=== PATIENT | female | born 1970 | race Caucasian/White ===

== ENCOUNTER 2017-05-25 23:00 | Inpatient (IN) | payer OTHER ==
--- NOTE | ~2017-05-25 | PN ---
Unit #: [id number] #: [id number] Patient: ROSALIO ELDER [id number] [facility] [address] [place] [address] [id number] MR#: [id number] NAME: ROSALIO ELDER. ROOM: P258 Age: 46 Sex: F Admission Date: 05/26/2017 : 1970 Attending Physician: Logan Loera M.D. Admitting Physician: Logan Loera M.D. Primary Care Physician: Vinh De La Rosa Jr., D.OLalito RODRIGUEZ PROGRESS NOTES DATE OF SERVICE: 05/28/2017 SUBJECTIVE Ms. Elder is a 46-year-old white female who was seen today and chart was reviewed and case was discussed with the staff. She has been very agitated, irritable, and poorly focused and motivated towards treatment, and wanting 72 hours hold to and that she is going to sign out right after that and that she does not need to be here and there is nothing wrong with her and we were not being nice to her, but not dropping her 72 hours hold and letting her go and as such, appears to be impulsive and irritable and overall being at poor prognosis. However, she has been voicing at loud that she is not suicidal anymore and that she is not having any thoughts to hurt herself and as such, I have a feeling that once her 72 hours hold expires tomorrow, she will effectively sign herself out against medical advice and will be encouraged to comply with treatment recommendations. Dictated by... Paco Crawford/bonifacio TD: 05/29/2017 06:13 JOB #: [id number] PEAKAYLENE PROGRESS NOTES Page 1 of 1 X Logan Loera MD PROGRESS NOTE
--- NOTE | ~2017-05-25 | DS ---
Unit #: [id number] #: [id number] Patient: ROSALIO SHAH [id number] [facility] [address] [place] [address] [id number] MR#: [id number] NAME: ROSALIO SHAH. ROOM: P258 Age: 46 Sex: F Admission Date: 05/26/2017 : 1970 Discharge Date: 05/29/2017 Attending Physician: Logan Loera M.D. Primary Care Physician: Vinh De La Rosa Jr., D.O. DISCHARGE SUMMARY IDENTIFYING DATA Ms. Shah is a 46-year-old white female who was a resident of [place], [place] and was transferred to us from [facility] emergency room. HISTORY OF PRESENT ILLNESS Please see initial psychiatric evaluation. PAST PSYCHIATRIC HISTORY Please see initial psychiatric evaluation. PAST MEDICAL HISTORY Please see initial psychiatric evaluation. HOSPITAL COURSE The patient [facility] and was oriented to the hospital environment. Routine p.r.n. medications were initiated and she was started back on her home medications and medications were adjusted she was closely monitored. She was taking the medications regularly and was tolerating them fairly well and was able to show a decent and therapeutic response with improvement in depression, anxiety and was denying any suicidal ideations, intent or plan and as such it was decided that she will be discharged and will continue treatment. DISCHARGE DIAGNOSES PSYCHIATRIC: Major depressive disorder, recurrent, moderate, without psychotic features. MEDICAL: 1. Asthma. 2. Chronic obstructive pulmonary disease. 3. Coronary artery disease. 4. Arthritis. 5. Degenerative disc disease. STRESSORS: Mild psychosocial stressors. DISCHARGE MEDICATIONS Celexa 20 mg daily for depression. CONDITION AT DISCHARGE Unit #: [id number] #: [id number] Patient: ROSALIO SHAH Stable. PROGNOSIS Fair. Dictated by... Logan Loera M.D. IAA/alejandroh TD: 05/29/2017 16:44 JOB #: [id number] DISCHARGE SUMMARY Page 1 of 1 X Logan Loera MD X DISCHARGE SUMMARY
--- NOTE | ~2017-05-25 | HP ---
Unit #: [id number] #: [id number] Patient: SHAYNA ELDER [id number] [facility] [address] [place] [address] [id number] MR#: [id number] NAME: SHAYNA ELDER. ROOM: P113 Age: 46 Sex: F Admission Date: 05/26/2017 : 1970 Attending Physician: Logan Loera M.D. Admitting Physician: Logan Loera M.D. Primary Care Physician: Vinh De La Rosa Jr., D.O. HISTORY AND PHYSICAL HISTORY OF PRESENT ILLNESS Shayna is a 46 year old admitted to [address] [place] [address] with out of control anger and homicidal and suicidal threats. PAST MEDICAL HISTORY COPD PAST SURGICAL HISTORY 1. Facial 2. T & A 3. Uterine ablation 4. Hysterectomy 5. Bilateral carpal tunnel release ALLERGIES Oxycodone (itching). SOCIAL HISTORY Smokes greater than one pack per day. Denies alcohol. Admits to using marijuana on a regular basis. FAMILY HISTORY Medically noncontributory. REVIEW OF SYSTEMS CONSTITUTIONAL: No fever or chills. HEENT: Denies any sore throat, ear pain or runny nose. CARDIOVASCULAR: Denies chest pain, irregular heart rhythm or palpitations. CHEST: Denies shortness of breath or cough. No hemoptysis. GASTROINTESTINAL: Denies nausea, vomiting, diarrhea or chronic constipation. ENDOCRINE: Denies history of increased thirst or urination. No recent significant weight loss or gain. GENITOURINARY: Denies dysuria, frequency, or hematuria. SKIN: Denies any rashes. HEMATOLOGIC: Denies history of increased bleeding or bruising. MUSCULOSKELETAL: Denies any hot, swollen joints. No generalized muscle pain. NEUROLOGIC: Denies problems with vision or speech. No frequent, severe headaches. No numbness, tingling or weakness in any extremities. Denies loss of bladder or bowel control. Unit #: [id number] #: [id number] Patient: SHAYNA ELDER CURRENT MEDICATIONS 1. Milk of Magnesia p.r.n. 2. Maalox p.r.n. 3. Tylenol p.r.n. 4. Nicotine patch 21 mg q day PHYSICAL EXAMINATION GENERAL: Alert, well-nourished, in no apparent distress. VITAL SIGNS: Blood pressure 130/66, heart rate 90, respirations 16, temperature 98.6. WEIGHT: 167 pounds. HEIGHT: 5'8". SKIN: Warm and dry without rash or lesion. HEENT: Normocephalic. TMs not viewed. Oral and nasal passages clear. Conjunctivae clear. Pupils equal, round and reactive to light and accommodation. Extraocular movements intact. NECK: Supple without lymphadenopathy or thyromegaly. HEART: Regular rate and rhythm without murmur. LUNGS: Clear. ABDOMEN: Soft, nontender. : Not done. EXTREMITIES: No evidence of cyanosis, clubbing or edema. Moves all extremities without focal deficit. NEUROLOGICAL: Grossly within normal limits. Cranial Nerves: II: Visual mendes are intact. III, IV AND : Extraocular movements are intact. Pupils are equal, round and reactive to light. V: Facial sensation is grossly normal. VII: Facial movements and expression are normal. VIII: Auditory acuity grossly intact. IX, X: Uvula is midline. Phonation is normal. XI: Patient shrugs shoulders and turns head normally. XII: Tongue protrudes in the midline. Sensory and Motor Function: Sensory and motor sensation is grossly normal. Motor: moves all extremities well. Coordination: Gait is normal. Deep Tendon Reflexes: Intact. IMPRESSION Psychiatric admission RECOMMENDATIONS PSYCHIATRIC: Per psychiatrist. MEDICAL: I see no contraindications to participating in facility's activities. MEDICAL PROGNOSIS Good. MEDICAL CONDITION Stable. Dictated by... Lina Johnson P.A.-C. for Qi Burt M.D. Unit #: [id number] #: [id number] Patient: SHAYNA ELDER Sohail CANO/annie TD: 05/26/2017 21:32 JOB #: [id number] HISTORY AND PHYSICAL Page 1 of 1 X Lina Johnson HISTORY AND PHYSICAL
--- NOTE | ~2017-05-25 | PA ---
Unit #: [id number] #: [id number] Patient: ROSALIO ELDER [id number] [facility] [address] [place] [address] [id number] I MR#: [id number] NAME: ROSALIO ELDER. ROOM: P258 Age: 46 Sex: F Admission Date: 05/26/2017 : 1970 Date of Assessment: 05/26/2017 Attending Physician: Logan Loera M.D. Admitting Physician: Logan Loera M.D. Primary Care Physician: Vinh De La Rosa Jr. D.O. PSYCHIATRIC ASSESSMENT DATE OF SERVICE 05/26/2017. IDENTIFYING DATA Ms. Elder is a 46-year-old white female, who is a resident of [place], [place], and was transferred to us from [facility] Emergency Room. CHIEF COMPLAINT "I had panic attack." HISTORY OF PRESENT ILLNESS Ms. Elder is a 46-year-old white female, who was brought to the emergency room due to having panic attacks and thoughts of having a seizure and stated that she has received her SSI check and she gave her mother to hold 4000 dollar for her and last night, the patient found out that her mother is not going to give her money back and stated that she did say while she was mad at her mother that she wanted to harm her mother and reported that she wishes she would and, while in the range of anger, the patient punched a wall and left her hand swollen and the patient was taken to emergency room and ER nurse reported the patient came to the ER making homicidal statements wanting to kill her mother due to her mother taking her 4000 dollar. On the emergency room, the patient was throwing things and police had to be called to help the patient calm down and security was called twice. The patient was placed on one-to-one and the patient made statement that she wanted to kill herself as well. 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 PAST PSYCHIATRIC HISTORY The patient has had history of inpatient psychiatric hospitalization at [facility] at [facility], at [facility] and has had outpatient treatment as well and has been diagnosed and treated for mood disorder. Review of the medical records indicate currently she is not active in any treatment program, is not seeing a psychiatrist, and is not taking any psychotropic medications. Unit #: [id number] #: [id number] Patient: ROSALIO ELDER PAST MEDICAL HISTORY Asthma, COPD, coronary artery disease, arthritis, degenerative disk disease. ALLERGIES Oxycodone. PERSONAL AND SOCIAL HISTORY A 46-year-old white female, who reports that she is single, unemployed, and lives at home with her father and her 18 years old son and has fairly decent social support system. MENTAL STATUS EXAMINATION Middle-aged white female who was casually dressed with fair personal hygiene, appears to be in no acute distress or discomfort. She was awake and alert on interaction with intact orientation to time, place, and person. Her mood was anxious and depressed with a congruent affect. Her speech was slow and restricted in content. Her thought processes were disorganized with some looseness of associations and suicidal ideations. Her insight and judgment remain significantly impaired. DIAGNOSTIC IMPRESSION Psychiatric: Major depressive disorder, recurrent, moderate, without psychotic features. Medical: Asthma, chronic obstructive pulmonary disease, coronary artery disease, arthritis, degenerative disk disease. Stressors: Moderate psychosocial stressors. TREATMENT PLAN 1. The patient has presented with history of mood disorder, and has been decompensating and will need inpatient hospitalization for safety and stabilization. We will start her back on her home medications. We will adjust the medications and monitor response. 2. Supportive therapy was provided to the patient. 3. Safe, structured, and nourishing environment will be provided. ESTIMATED LENGTH OF STAY 5 to 7 days. ABILITY TO HELP SELF Limited. WILLINGNESS TO HELP SELF The patient appears to be willing to help self. STRENGTHS 1. Communicative. 2. Cooperative. PROBLEMS 1. Chronic dysphoric symptoms. 2. Poor social support system. DISCHARGE CRITERIA This will be contingent upon the patient's ability to show resolution of her depression and her ability to stay safe to herself, particularly after discharge from the hospital. Unit #: [id number] #: [id number] Patient: ROSALIO ELDER Dictated by... Paco Crawford/bonifacio TD: 05/27/2017 07:57 JOB #: [id number] PSYCHIATRIC ASSESSMENT Page 1 of 1 X Logan Loera MD PSYCHIATRIC ASSESSMENT
--- NOTE | ~2017-05-25 | PN ---
Unit #: [id number] #: [id number] Patient: ROSALIO ELDER [id number] [facility] [address] [place] [address] [id number] MR#: [id number] NAME: ROSALIO ELDER. ROOM: P258 Age: 46 Sex: F Admission Date: 05/26/2017 : 1970 Attending Physician: Logan Loera M.D. Admitting Physician: Logan Loera M.D. Primary Care Physician: Vinh De La Rosa Jr., D.OLalito RODRIGUEZ PROGRESS NOTES DATE 05/27/2017 DISCUSSION Ms. Elder is a 46-year-old white female who was seen today and chart was reviewed and case was discussed with the staff. She has been anxious, withdrawn, depressed and rather seclusive to herself. Meanwhile, she has been cooperative with treatment recommendations as she has been taking the medications and tolerating them fairly well with no reported side effects. MENTAL STATUS EXAMINATION Middle-aged white female who was casually dressed with fair personal hygiene, appears to be in no acute distress or discomfort. She was awake and alert on interaction with intact orientation. Her mood was anxious with congruent affect. She denies any suicidal or homicidal ideations. Also, denies any auditory or visual hallucinations. Her insight and judgement remains slightly impaired. TREATMENT PLAN 1. We will continue her on her current medications and treatment protocol. We will monitor her response to the medication and make further adjustments as needed. 2. We will continue to follow up. Dictated by... Paco Crawford/annie TD: 05/28/2017 02:30 JOB #: [id number] Unit #: [id number] #: [id number] Patient: ROSALIO ELDER PROGRESS NOTES Page 1 of 1 X Logan Loera MD PROGRESS NOTE
[~2017-05-25 23:00] MED LIST: ALBUTEROL17 GM INH; ATROVENT HFA12.9 GM INH; BIPOLAR MED; CLARITIN10 MG PO; FLAGYL PO; VICODIN 5/500 T1 TAB PO; ZITHROMAX PO
[2017-05-29 09:58] LABS: URINE APPEARANCE CLOUDY; URINE BILIRUBIN NEG (NEG); URINE BLOOD NEG (NEG); URINE COLOR YELLOW; URINE GLUCOSE NEG (NEG); URINE KETONE NEG (NEG); URINE LEUKOCYTE ESTERASE NEG (NEG); URINE NITRATE NEG (NEG); URINE PROTEIN NEG (NEG); URINE SPECIFIC GRAVITY 1.018 (1.003-1.035); URINE UROBILINOGEN 0.2 MG/DL (NEG)
[2017-05-29 10:36] LABS: AMPHETAMINE NEG (NEG); BARBITURATES NEG (NEG); BENZODIAZEPINES NEG (NEG); COCAINE NEG (NEG); MARIJUANA POS (NEG); OPIATES NEG (NEG); TRICYCLIC ANTIDEPRESSANTS NEG (NEG); U METHADONE NEG (NEG)
== END 2017-05-29 11:10 | disposition home or self-care (01) | DRG 885 ==
LOC: P1S 05-26 15:02 → P2L 05-26 15:02 → P1S 05-26 15:17 → P2L 05-27 18:29
PROVIDERS: Psychiatry & Neurology Psychiatry
DX: F33.1 Major depressive disorder, recurrent, moderate (principal); J44.9 Chronic obstructive pulmonary disease, unspecified; I25.10 Atherosclerotic heart disease of native coronary artery without angina pectoris; J45.909 Unspecified asthma, uncomplicated; F17.210 Nicotine dependence, cigarettes, uncomplicated
CPT/HCPCS: 80307; 81003